=== PATIENT | male | born 1975 | race African-American/Black ===

== ENCOUNTER 2019-09-03 10:52 | Inpatient (IN) | payer MEDICAID, OTHER ==
[~2019-09-03] VITALS: Ht 175.3 cm; Wt 90.7 kg
[~2019-09-03 10:52] MED LIST: KEPP250 MT; PHEN100C4 MT
[2019-09-03] MEDS ORDERED: SODIUM CHLORIDE 0.9% 1,000 ML IV ONE (11:10)
[2019-09-03] MEDS ORDERED: LEVETIRACETAM 1000MG/100ML 100 ML IV ONE (11:15)
[2019-09-03 12:05] LABS: CLARITY URINE CLOUDY (CLEAR); COLOR URINE YELLOW (YELLOW); KETONES URINE NEGATIVE (NEGATIVE); LEUKOCYTE ESTERASE URINE NEGATIVE (NEGATIVE); NITRITE URINE NEGATIVE (NEGATIVE); OCCULT BLOOD URINE 1+ (NEGATIVE); PROTEIN URINE TRACE (NEGATIVE); UROBILINOGEN URINE 0.2 E.U./dL (0.2-1.0)
[2019-09-03 12:16] LABS: HEMATOCRIT. 44.7 % (42.0-52.0); HEMOGLOBIN. 14.4 g/dL (14.0-18.0); MEAN CORPUSCULAR HEMOGLOBIN 28.6 pg (28.0-32.0); MEAN CORPUSCULAR VOLUME 88.6 fL (80.0-94.0); MEAN PLATELET VOLUME 8.4 fl (7.4-10.4); PLATELET 287 x1000/uL (130-400); RED BLOOD CELL COUNT 5.04 mill/uL (4.7-6.1)
[2019-09-03 12:22] LABS: CHLORIDE 105 mEq/L (98-107)
[2019-09-03 12:26] LABS: ETHANOL BLOOD < 10 mg/dL
[2019-09-03 12:30] LABS: CARBAMAZEPINE < 0.5 ug/mL (4-12)
[2019-09-03 12:30] LABS: *AMPHETAMINES SCREEN URINE NEGATIVE (NEGATIVE); *BARBITURATES SCREEN URINE NEGATIVE (NEGATIVE); *BENZODIAZEPINES SCREEN URINE PRESUMTIVE POSITIVE (NEGATIVE); *COCAINE SCREEN URINE NEGATIVE (NEGATIVE)
[2019-09-03 12:31] LABS: CREATINE KINASE 195 IU/L (39-308)
[2019-09-03 12:32] LABS: PROTHROMBIN TIME 10.7 sec (9.6-11.0)
[2019-09-03 12:33] LABS: PHENOBARBITAL < 2.1 ug/mL (15.0-40.0)
[2019-09-03 12:34] LABS: PHENCYCLIDINE URINE SCREEN NEGATIVE (NEGATIVE)
[2019-09-03 12:37] LABS: CANNABINOID URINE SCREEN NEGATIVE (NEGATIVE); METHADONE URINE SCREEN NEGATIVE (NEGATIVE)
[2019-09-03 12:39] LABS: OPIATES URINE SCREEN NEGATIVE (NEGATIVE)
[2019-09-03 12:48] LABS: PLATELET ESTIMATE NORMAL
[2019-09-03] MEDS ORDERED: PHENYTOIN SODIUM 1,000 MG in SODIUM CHLORIDE 0.9% 100 ML IV ONE (13:45)
[2019-09-03 17:00] VITALS: BP 153/85
[2019-09-03] MEDS ORDERED: SODIUM CHLORIDE 0.45% 1,000 ML IV SCH (17:42)
[2019-09-03] MEDS ORDERED: ACETAMINOPHEN 325MG TABLET PO PRN (17:45)
[2019-09-03] MEDS ORDERED: ONDANSETRON HCL 4MG/2ML INJ IV PRN (17:45)
[2019-09-03] MEDS ORDERED: MORPHINE SULFATE 2 MG/ML CPJ (NOT FOR IM USE) IV PRN (17:45)
[2019-09-03] MEDS ORDERED: CLONIDINE 0.1MG TABLET PO PRN (17:45)
[2019-09-03] MEDS ORDERED: DOCUSATE SODIUM 100MG CAPSULE PO PRN (17:45)
[2019-09-03] MEDS ORDERED: MAGNESIUM/ALUMINUM HYDROXIDE/SIMETHICONE 30ML UDC PO PRN (17:45)
[2019-09-03] MEDS ORDERED: IPRATROPIUM/ALBUTEROL 0.5-3(2.5)MG/3ML NEB HHN PRN (17:45)
[2019-09-03] MEDS ORDERED: NA PHOS,M-B/NA PHOS,DI-BA ENEMA 118ML PR PRN (17:45)
[2019-09-03] MEDS ORDERED: GUAIFENESIN 200MG/10ML SUGAR FREE UDC PO PRN (17:45)
[2019-09-03] MEDS ORDERED: DIPHENHYDRAMINE 50MG/ML VIAL IV PRN (17:45)
[2019-09-03] MEDS ORDERED: HYDROCODONE/ACETAMINOPHEN 10/325MG TABLET PO PRN (17:45)
[2019-09-03] MEDS ORDERED: LORAZEPAM 2MG/ML CPJ IV PRN (17:45)
[2019-09-03 18:00] VITALS: BP 158/88
[2019-09-03] MEDS ORDERED: ENOXAPARIN 40MG/0.4ML SYR SUBCUT SCH (19:00)
[2019-09-03 20:00] VITALS: BP 156/90
[2019-09-03 22:00] VITALS: BP 132/67
[2019-09-03] MEDS ORDERED: SODIUM CHLORIDE 0.9% INJ 3ML FLUSH IVF SCH (22:00)
[2019-09-04] VITALS: BP 135/81
[2019-09-04 02:00] VITALS: BP 130/90
[2019-09-04 04:00] VITALS: BP 130/86
[2019-09-04 06:17] LABS: BASOPHILS % 0.3 % (0.0-2.0); HEMATOCRIT. 42.9 % (42.0-52.0); LYMPHOCYTES % 11.4 % (20.0-50.0); MEAN CORPUSCULAR HEMOGLOBIN 28.6 pg (28.0-32.0); MEAN CORPUSCULAR VOLUME 87.6 fL (80.0-94.0); MEAN PLATELET VOLUME 8.8 fl (7.4-10.4); MONOCYTES % 10.5 % (2.0-8.0); NEUTROPHILS % 77.8 % (40.0-76.0); PLATELET 275 x1000/uL (130-400); RED BLOOD CELL COUNT 4.89 mill/uL (4.7-6.1); RED CELL DISTRIBUTION WIDTH 14.2 % (11.6-14.6)
[2019-09-04 06:38] LABS: CHLORIDE 109 mEq/L (98-107)
[2019-09-04 06:48] LABS: CREATINE KINASE 441 IU/L (39-308)
[2019-09-04 06:49] LABS: T4 FREE 1.18 ng/dL (0.76-1.46)
[2019-09-04 06:56] LABS: CREATINE KINASE MB FRACTION < 1.0 ng/mL (0.5-3.6)
[2019-09-04 08:00] VITALS: BP 138/78
[2019-09-04] MEDS ORDERED: LORAZEPAM 2MG/ML CPJ IM PRN (08:00)
[2019-09-04] MEDS ORDERED: LEVETIRACETAM 500 MG in SODIUM CHLORIDE 0.9% 100 ML IV SCH (09:00)
== END 2019-09-04 15:57 | disposition left against medical advice (07) | DRG 53 ==
LOC: ER 10:52 → 5EST 13:03 → EDBEDREQ 13:30 → EDBEDREQTM 13:30 → ENRESERV 15:23
PROVIDERS: ADMIT Internal Medicine; ATTEND Internal Medicine
DX: G40.89 Other seizures (principal); R32 Unspecified urinary incontinence; Z53.21 Procedure and treatment not carried out due to patient leaving prior to being seen by health care provider; Z91.14 Patient's other noncompliance with medication regimen; Z79.899 Other long term (current) drug therapy
CPT/HCPCS: 36415; 71045; 80156; 80165; 80184; 80185; 80305; 80320; 81003; 82550; 82553; 83880; 84439; 84443; 84484; 93005; 99291; C1893; J1165; J1650; J1953; J7030; J7050; G0480

== ENCOUNTER 2019-09-13 13:38 | Inpatient (IN) | payer MEDICAID ==
[~2019-09-13] VITALS: Ht 175.3 cm; Wt 98.0 kg
[2019-09-13] MEDS ORDERED: LEVETIRACETAM 500MG PREMIX 100 ML IV ONE (14:15)
[2019-09-13 14:25] LABS: CHLORIDE 107 mEq/L (98-107)
[2019-09-13 14:29] LABS: ETHANOL BLOOD < 10 mg/dL
[2019-09-13 14:30] LABS: HEMATOCRIT. 44.6 % (42.0-52.0); HEMOGLOBIN. 14.4 g/dL (14.0-18.0); MEAN CORPUSCULAR HEMOGLOBIN 28.6 pg (28.0-32.0); MEAN CORPUSCULAR VOLUME 88.5 fL (80.0-94.0); MEAN PLATELET VOLUME 8.8 fl (7.4-10.4); PLATELET 383 x1000/uL (130-400); RED BLOOD CELL COUNT 5.04 mill/uL (4.7-6.1); RED CELL DISTRIBUTION WIDTH 14.2 % (11.6-14.6)
[2019-09-13 15:00] LABS: PLATELET ESTIMATE NORMAL
[2019-09-13 15:43] LABS: CLARITY URINE CLOUDY (CLEAR); COLOR URINE YELLOW (YELLOW); KETONES URINE NEGATIVE (NEGATIVE); LEUKOCYTE ESTERASE URINE NEGATIVE (NEGATIVE); NITRITE URINE NEGATIVE (NEGATIVE); OCCULT BLOOD URINE 2+ (NEGATIVE); PROTEIN URINE TRACE (NEGATIVE); SPECIFIC GRAVITY URINE 1.015 (1.005-1.030); UROBILINOGEN URINE 0.2 E.U./dL (0.2-1.0)
[2019-09-13 15:56] LABS: *AMPHETAMINES SCREEN URINE NEGATIVE (NEGATIVE); *BARBITURATES SCREEN URINE NEGATIVE (NEGATIVE); *BENZODIAZEPINES SCREEN URINE NEGATIVE (NEGATIVE); *COCAINE SCREEN URINE NEGATIVE (NEGATIVE)
[2019-09-13 15:57] LABS: CANNABINOID URINE SCREEN NEGATIVE (NEGATIVE); METHADONE URINE SCREEN NEGATIVE (NEGATIVE); OPIATES URINE SCREEN NEGATIVE (NEGATIVE); PHENCYCLIDINE URINE SCREEN NEGATIVE (NEGATIVE)
[2019-09-13] MEDS ORDERED: PHENYTOIN SODIUM 500 MG in SODIUM CHLORIDE 0.9% 50 ML IV ONE (16:15)
[2019-09-13] MEDS ORDERED: GUAIFENESIN 200MG/10ML SUGAR FREE UDC PO PRN (19:15)
[2019-09-13] MEDS ORDERED: ACETAMINOPHEN 325MG TABLET PO PRN (19:15)
[2019-09-13] MEDS ORDERED: ONDANSETRON HCL 4MG/2ML INJ IV PRN (19:15)
[2019-09-13] MEDS ORDERED: DOCUSATE SODIUM 100MG CAPSULE PO PRN (19:15)
[2019-09-13] MEDS ORDERED: HYDROCODONE/ACETAMINOPHEN 5/325MG TABLET PO PRN (19:15)
[2019-09-13 22:20] VITALS: BP 136/76
[2019-09-13 22:35] VITALS: BP 136/76
[2019-09-13] MEDS: SODIUM CHLORIDE 0.45% 1,000 ML IV SCH (23:00)
[2019-09-13 23:36] LABS: CREATINE KINASE 179 IU/L (39-308)
[2019-09-14] VITALS: BP 116/69
[2019-09-14 04:00] VITALS: BP 128/74
[2019-09-14 06:36] LABS: CHLORIDE 106 mEq/L (98-107)
[2019-09-14 06:38] LABS: BASOPHILS % 0.2 % (0.0-2.0); HEMATOCRIT. 42.9 % (42.0-52.0); HEMOGLOBIN. 13.8 g/dL (14.0-18.0); LYMPHOCYTES % 10.3 % (20.0-50.0); MEAN CORPUSCULAR HEMOGLOBIN 28.4 pg (28.0-32.0); MEAN CORPUSCULAR VOLUME 87.8 fL (80.0-94.0); MEAN PLATELET VOLUME 8.7 fl (7.4-10.4); MONOCYTES % 8.6 % (2.0-8.0); NEUTROPHILS % 80.9 % (40.0-76.0); PLATELET 354 x1000/uL (130-400); RED BLOOD CELL COUNT 4.88 mill/uL (4.7-6.1); RED CELL DISTRIBUTION WIDTH 13.7 % (11.6-14.6)
[2019-09-14 06:49] LABS: CREATINE KINASE 342 IU/L (39-308)
[2019-09-14 08:00] VITALS: BP 130/84
[2019-09-14] MEDS ORDERED: LORAZEPAM 2MG/ML CPJ IV PRN (09:45)
[2019-09-14 12:00] VITALS: BP 140/96
[2019-09-14] MEDS: OLANZAPINE 5MG TABLET PO SCH (12:08)
[2019-09-14] MEDS: ENOXAPARIN 30MG/0.3ML SYR SUBCUT SCH ×2 (12:17→20:58)
[2019-09-14] MEDS: PHENYTOIN SODIUM EXTENDED 100MG CAPSULE PO SCH ×2 (14:07→22:17)
[2019-09-14] MEDS: SODIUM CHLORIDE 0.45% 1,000 ML IV SCH (17:02)
[2019-09-14 18:16] VITALS: BP 161/93
[2019-09-14 20:00] VITALS: BP 161/101
[2019-09-14] MEDS: LEVETIRACETAM 500MG TABLET PO SCH (20:58)
[2019-09-14] MEDS: CLONIDINE 0.1MG TABLET PO PRN (20:59)
[2019-09-15] VITALS: BP 142/84
[2019-09-15 04:00] VITALS: BP 142/94
[2019-09-15] MEDS: PHENYTOIN SODIUM EXTENDED 100MG CAPSULE PO SCH (05:30)
[2019-09-15 08:00] VITALS: BP 179/106
[2019-09-15] MEDS: ENOXAPARIN 30MG/0.3ML SYR SUBCUT SCH (08:55)
[2019-09-15] MEDS: OLANZAPINE 5MG TABLET PO SCH (08:56)
[2019-09-15] MEDS: LEVETIRACETAM 500MG TABLET PO SCH (08:56)
[2019-09-15] MEDS: CLONIDINE 0.1MG TABLET PO PRN (09:06)
[2019-09-15 10:25] VITALS: BP 130/86
[2019-09-15 10:56] VITALS: BP 130/86
[2019-09-15 12:00] VITALS: BP 117/69
[2019-09-15] MEDS ORDERED: ATORVASTATIN CALCIUM 20MG TABLET PO SCH (21:00)
== END 2019-09-15 15:40 | disposition home or self-care (01) | DRG 53 ==
LOC: ER 13:38 → 8WST 17:58 → EDBEDREQTM 18:18 → ENRESERV 20:31
PROVIDERS: ADMIT Hospitalist; ATTEND Hospitalist
DX: G40.409 Other generalized epilepsy and epileptic syndromes, not intractable, without status epilepticus (principal); F22 Delusional disorders; R00.0 Tachycardia, unspecified; Z68.31 Body mass index [BMI] 31.0-31.9, adult; Z91.19 Patient's noncompliance with other medical treatment and regimen; Z79.899 Other long term (current) drug therapy
CPT/HCPCS: 36415; 80185; 80305; 80320; 81003; 82550; 82962; 93005; 95816; 99285; C1893; J1165; J1650; J1953; G0480

== ENCOUNTER 2021-07-25 12:54 | Emergency (ER) | payer MEDICAID ==
[~2021-07-25] VITALS: Ht 182.9 cm; Wt 102.0 kg
[2021-07-25] MEDS ORDERED: LEVETIRACETAM 500MG PREMIX 100 ML IV ONE (14:00)
[2021-07-25 15:30] VITALS: BP 132/78
[2021-07-25 15:31] LABS: CHLORIDE 104 mEq/L (98-107)
[2021-07-25] MEDS ORDERED: LEVETIRACETAM 500MG TABLET PO NR (15:45)
== END 2021-07-25 18:14 | disposition home or self-care (01) ==
LOC: ER 12:54
DX: G40.909 Epilepsy, unspecified, not intractable, without status epilepticus (principal); I10 Essential (primary) hypertension
CPT/HCPCS: 36415; 80048; 80185; 99283